=== PATIENT | female | born 1960 | race Caucasian/White ===

== ENCOUNTER 2021-01-28 20:07 | Emergency (ER) | payer OTHER, BC ==
[2021-01-28 20:24] VITALS: TEMP 98.6
[2021-01-28] MEDS ORDERED: RX INFO: IV CONTRAST WAS GIVEN 1 EACH MISC MISCELLANE PRN (20:34)
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
[2021-01-28 22:13] VITALS: BP 143/98; PULSE 88; RESP 18
== END 2021-01-28 22:13 | disposition home or self-care (01) ==
LOC: EC 20:07
DX: S20.02XA Contusion of left breast, initial encounter (principal); V43.62XA Car passenger injured in collision with other type car in traffic accident, initial encounter; Y92.410 Unspecified street and highway as the place of occurrence of the external cause
CPT/HCPCS: 71260; 99284; Q9967

== ENCOUNTER → 2021-02-07 | Outpatient (CLI) | payer OTHER, BC ==
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
== END | disposition home or self-care (01) ==
LOC: RADUSWWP 09:19
PROVIDERS: ATTEND Family Medicine
DX: R10.12 Left upper quadrant pain (principal); S39.91XA Unspecified injury of abdomen, initial encounter
CPT/HCPCS: 76705